=== PATIENT | male | born 1980 | race Caucasian/White ===

== ENCOUNTER 2016-12-21 06:05 | Emergency (ER) | payer BC ==
[~2016-12-21] VITALS: Ht 170.2 cm; Wt 72.0 kg
[2016-12-21 06:07] VITALS: BP 142/85; PULSE 78; RESP 16; TEMP 97.7; O2SAT 98
--- NOTE | 2016-12-21 06:29 | PD ---
HPI Chief Complaint: Headache Time Seen by Provider: 06:26 Travel History International Travel<30 days: No Contact w/Intl Traveler<30days: No Traveled to known affect area: No History of Present Illness HPI 36-year-old male with history of migraine headaches presents to emergency department for evaluation of a persistent migraine headache 2 days. Patient states he has maxed out all of his migraine medication. He states this does happen if he does not catch it soon enough. He Is nauseous. He states that when this does happen he just continues to get more sick. Denies any focal deficits weakness. No recent head trauma. No chest pain or tightness. No recent illnesses, fever, or chills. No other symptoms to report this time. PFSH Past Medical History Headaches: Yes Social History Alcohol Use: No Tobacco Use: No Substance Use: No Allergies-Medications (Allergen,Severity, Reaction): Coded Allergies: No Known Allergies (Unverified , 12/21/16) Reported Meds & Prescriptions Reported Meds & Active Scripts Active Reported Maxalt (Rizatriptan Benzoate) 5 Mg Tab Fioricet (Zeyaolrclm-Mvzjrdewdteby-Jfkvbhpq) 50-300-40 Mg Cap 1 Cap PO Q4H PRN Percocet (Oxycodone-Acetaminophen) 10-325 mg Tab 1 Tab PO Q6H PRN Topamax (Topiramate) 50 Mg Tab 50 Mg PO BID Review of Systems Except as stated in HPI: all other systems reviewed are Neg Physical Exam Narrative GENERAL: Well-nourished, well-developed male patient, ambulatory with a nonantalgic gait, in no acute distress SKIN: Warm and dry. HEAD: Normocephalic. Atraumatic EYES: No scleral icterus. No injection or drainage. NECK: Supple, trachea midline. No JVD or lymphadenopathy. CARDIOVASCULAR: Regular rate and rhythm without murmurs, gallops, or rubs. RESPIRATORY: Breath sounds equal bilaterally. No accessory muscle use. GASTROINTESTINAL: Abdomen soft, non-tender, nondistended. MUSCULOSKELETAL: No cyanosis, or edema. BACK: Nontender without obvious deformity. No CVA tenderness. NEUROLOGICAL: Awake and alert. Cranial nerves II through XII intact. Motor and sensory grossly within normal limits. Five out of 5 muscle strength in all muscle groups. Normal speech. Data Data Last Documented VS Vital Signs Date Time Temp Pulse Resp B/P Pulse Ox O2 Delivery O2 Flow Rate FiO2 12/21/16 07:32 78 16 128/77 99 12/21/16 06:07 97.7 Room Air Orders Iv Access Insert/Monitor (12/21/16 06:24) Ketorolac Inj (Toradol Inj) (12/21/16 06:30) Diphenhydramine Inj (Benadryl Inj) (12/21/16 06:30) Sodium Chlor 0.9% 1000 Ml Inj (Ns 1000 M (12/21/16 06:30) Prochlorperazine Inj (Compazine Inj) (12/21/16 06:30) MDM Medical Decision Making Medical Screen Exam Complete: Yes Emergency Medical Condition: Yes Medical Record Reviewed: Yes Differential Diagnosis Migraine with or without aura versus cluster headache versus tension headache Narrative Course 36-year-old male presents to the emergency department for evaluation of migraine headache. Patient appears without distress. His neuro exam is nonfocal. IV access is obtained, patient was given IV fluids, Toradol, Compazine, and Benadryl. He will be discharged home to follow up with pcp. Diagnosis Primary Impression: Migraine Qualified Code: G43.901 - Migraine with status migrainosus, not intractable, unspecified migraine type Referrals: Primary Care Physician Patient Instructions: General Instructions, Migraine Headache (ED) Departure Forms: Tests/Procedures, Work Release Enter return to work date: Dec 22, 2016 Additional Instructions: Follow-up the primary care provider Return immediately with any acute worsening of symptoms Med/Other Pt SpecificInfo: No Change to Meds Disposition: 01 DISCHARGE HOME Condition: Stable Genna Dill Dec 21, 2016 06:29 Genna Dill Dec 21, 2016 06:29
[2016-12-21] MEDS ORDERED: SODIUM CHLOR 0.9% 1000 ML INJ 1,000 ML IV ONE (06:30)
[2016-12-21] MEDS ORDERED: KETOROLAC TROMETHAMINE 30 MG/ML (IVP) VIAL IV PUSH ONE (06:30)
[2016-12-21] MEDS ORDERED: diphenhydrAMINE HCL 50 MG/ML VIAL IV PUSH ONE (06:30)
[2016-12-21] MEDS ORDERED: PROCHLORPERAZINE INJ 10 MG/2 ML VIAL IVS ONE (06:30)
[2016-12-21] MEDS ORDERED: BUTA1CAP PO (06:48)
[2016-12-21] MEDS ORDERED: MAXA5TAB2 (06:48)
[2016-12-21] MEDS ORDERED: PERC10TA27 PO (06:48)
[2016-12-21] MEDS ORDERED: TOPA50TA7 PO (06:48)
[2016-12-21 07:32] VITALS: BP 128/77
== END 2016-12-21 07:40 | disposition home or self-care (01) ==
LOC: NEPB 06:05
DX: G43.901 Migraine, unspecified, not intractable, with status migrainosus (principal)
CPT/HCPCS: 96361; 96374; 96375; 99283; J0780; J1200; J1885; J7030